=== PATIENT | male | born 1940 | race Caucasian/White ===

== ENCOUNTER 2019-08-27 21:02 | Inpatient (IN) | payer OTHER, SELFPAY ==
[~2019-08-27] VITALS: Ht 180.3 cm; Wt 111.0 kg
[2019-08-27 22:08] LABS: BASOPHILS # (AUTO) 0.1 X10'3 (0-0.2); EOSINOPHILS % (AUTO) 0 % (0-6); LYMPHOCYTES # (AUTO) 0.5 X10'3 (1.1-4.8); MEAN CORPUSCULAR HEMOGLOBIN 30.5 PG (27.0-31.0); RED CELL DISTRIBUTION WIDTH 13.9 % (11.5-14.5)
[2019-08-27 22:11] LABS: BASOPHILS % (AUTO) 0.9 % (0-1); HEMOGLOBIN 17.3 g/dl (14.0-17.9); LYMPHOCYTES % (AUTO) 4.5 % (21-51); MEAN CORPUSCULAR VOLUME 89.9 FL (78-98); MEAN PLATELET VOLUME 9.4 FL (7.4-10.4); MONOCYTES # (AUTO) 0.5 X10'3 (0-0.9); MONOCYTES % (AUTO) 3.9 % (2-12); NEUTROPHILS # (AUTO) 10.9 X10'3 (1.8-7.7); NEUTROPHILS % (AUTO) 90.7 % (42-75); PLATELET COUNT 190 X10'3 (140-440); RED BLOOD COUNT 5.68 X10'6 (4.70-6.10)
[2019-08-27 22:16] LABS: ALANINE AMINOTRANSFERASE 26 U/L (12-78); ALBUMIN 3.9 G/DL (3.4-5.0); ALBUMIN/GLOBULIN RATIO 1.1 (1.1-1.5); ALKALINE PHOSPHATASE 106 IU/L (46-116); ANION GAP 8 (8-16); ASPARTATE AMINO TRANSFERASE 22 U/L (10-37); BILIRUBIN,TOTAL 1.1 MG/DL (0.1-1.0); BLOOD UREA NITROGEN 10 MG/DL (7-18); BUN/CREATININE RATIO 9.3 (5.4-32.0); CALCIUM 10.5 MG/DL (8.5-10.1); CHLORIDE 105 MMOL/L (99-107); CREATININE 1.07 MG/DL (0.60-1.10); GLUCOSE 155 MG/DL (70-104); LIPASE 117 U/L (73-393); POTASSIUM 4.2 MMOL/L (3.5-5.1); SODIUM 139 MMOL/L (135-145); TOTAL CARBON DIOXIDE 25.9 MMOL/L (24-32); TOTAL PROTEIN 7.5 G/DL (6.4-8.2); eGFR 67 ML/MIN
[2019-08-27] MEDS ORDERED: normal saline 1000ML IV soln IVB ONE (22:50)
[2019-08-27] MEDS ORDERED: ondansetron/PF 4mg/2ml inj IV ONE (22:50)
[2019-08-27 23:01] LABS: CLARITY,URINE CLOUDY (Clear); GLUCOSE, URINE NEGATIVE (Neg); KETONES,URINE 40 mg/dl (Neg); LEUKOCYTE ESTERASE ,URINE NEGATIVE (Neg); NITRITES, URINE NEGATIVE (Neg); OCCULT BLOOD,URINE LARGE (Neg); PH,URINE 5.5 (4.8-8.0); PROTEIN,URINE 100 mg/dl (Neg)
[2019-08-27 23:04] LABS: COLOR,URINE DARK YELLOW (Yellow); UA COLLECTION TYPE NON-SPECIFIED
[2019-08-27] MEDS: morphine 4 MG/ML inj SYRINge IV PRN ×2 (23:12→23:59)
[2019-08-27 23:14] LABS: RBC,URINE TNTC /HPF (0-2)
[2019-08-27 23:15] LABS: BACTERIA,URINE FEW /HPF (Neg); MUCUS STRANDS FEW /LPF (Neg); SQUAMOUS EPITHELIAL CELL,UR FEW /LPF (FEW)
[2019-08-28] VITALS (17 sets, daily range): BP systolic 116–155; BP diastolic 60–87
[2019-08-28] MEDS ORDERED: metroNIDAZOLE-Flagyl 500mg/NS 100 ML IV STA (00:22)
[2019-08-28] MEDS ORDERED: piperacillin/tazo 3.375gm/50ml 50 ML IV ONE (00:25)
[2019-08-28] MEDS ORDERED: morphine 4 MG/ML inj SYRINge IV ONE (00:35)
[2019-08-28] MEDS ORDERED: potassium CL 10mEq/100ml bag 100 ML IV PRN ×2 (00:50)
[2019-08-28] MEDS ORDERED: ondansetron/PF 4mg/2ml inj IV PRN ×2 (00:50→01:00)
[2019-08-28] MEDS ORDERED: morphine 2 MG/ML inj. syringe IV PRN ×3 (00:50→01:00)
[2019-08-28] MEDS ORDERED: ringers solution, lacted 1,000 ML IV SCH (00:58)
[2019-08-28] MEDS ORDERED: hydrALAZINE 20mg/ml inj. IV PRN (01:00)
[2019-08-28] MEDS ORDERED: labetalol 20mg/4ml (5mg/ml) syringe IV PRN (01:00)
[2019-08-28] MEDS ORDERED: fentaNYL/PF 50MCG/1 ML 2ML syringe IV PRN ×2 (01:00)
[2019-08-28] MEDS ORDERED: morphine 4 MG/ML inj SYRINge IV PRN (01:00)
[2019-08-28] MEDS ORDERED: fentaNYL/PF 50MCG/1 ML 2ML syringe ONE (01:03)
[2019-08-28] MEDS ORDERED: midazolam 2 mg/2 ml injection ONE (01:03)
[2019-08-28] MEDS ORDERED: propofol inj 20 ML IV ONE (01:06)
[2019-08-28] MEDS ORDERED: neostigmine methylsulfate 1 MG/ML 10ml vial ONE (01:06)
[2019-08-28] MEDS ORDERED: glycopyrrolate 0.2mg/ml inj ONE (01:06)
[2019-08-28] MEDS ORDERED: dexamethasone sod phosphate 4mg/ml inj. ONE (01:06)
[2019-08-28] MEDS ORDERED: ondansetron/PF 4mg/2ml inj ONE (01:06)
[2019-08-28] MEDS ORDERED: rocuronium 10mg/ml inj IV ONE ×2 (01:06→01:27)
[2019-08-28] MEDS ORDERED: LIDOcaine 2% (20mg/ml) 5ml vial ONE (01:06)
[2019-08-28] MEDS ORDERED: gentamicin 40 MG/1 ML inj ONE (01:18)
[2019-08-28] MEDS ORDERED: BUPIVAcaine/PF 2.5 mg/ml (0.25%) 30ml vial ONE ×2 (01:18→02:40)
[2019-08-28] MEDS ORDERED: ceFAZolin 1000mg inj ONE (01:18)
[2019-08-28] MEDS ORDERED: clindamycin phosphate 150mg/ml inj. ONE (01:18)
[2019-08-28] MEDS ORDERED: sevoflurane 250ml liquid IH ONE (01:27)
[2019-08-28] MEDS ORDERED: sugammadex 200mg/2ml injection IV ONE (01:27)
[2019-08-28] MEDS ORDERED: labetalol 20mg/4ml (5mg/ml) syringe IV ONE (01:53)
[2019-08-28] MEDS ORDERED: HYDROcodone/acetaminophen 10/325mg tab PO ONE (02:55)
--- NOTE | 2019-08-28 03:00 | NUR ---
Received from OR via , accompanied by Anesthesiologist DR PEGUERO and report given by Anesthesiolgist. PT AWAKE, MOVING EXT X4 SKIN WARM AND PINK, ABD HAS 5 BA'S ON ABD, 4X4 AND FOAM TAPE ON UMBILICUS. MOREL TO GRAVITY, CLOUDY URINE, LR BOLUS RUNNING PER DR PEGUERO ORDERS, SCD'S PIV LEFT FA 20G, NO C/O PAIN.
--- NOTE | 2019-08-28 03:26 | NUR ---
Patient in room PCU 3020. I have received report from Sindy in recovery and had the opportunity to ask questions and awaiting arrival of patient to the PCU unit.
--- NOTE | 2019-08-28 03:30 | NUR ---
Report called to receiving nurse. Transferred via BED Belongings . Special Issues communicated to receiving nurse MI DELA CRUZ. PT IS AWAKE, ALERT, MOVING EXT X 4, SKIN WARM AND PINK, SCD'S ON, MOREL TO GRAVITY WITH CLOUDY URINE, IV BOLUS STILL INFUSING ON DELIVERY TO 3020, RN NOTIFIED, IV PATENT, DRESSING CD, NO C/O PAIN, PT MEETS DISCHARGE CRITERIA.
--- NOTE | 2019-08-28 03:50 | NUR ---
Patient arrived from the recovery room at this time. He is alert and oriented. His is with him at bedside. He is pleasant. He says at the highest level he would rate his pain at a 3 or 4 out of ten to the surgical incision site. Vitals are stable and will be obtaining post op vitals. He is on 3 liters oxygen NC. Hayward catheter in place. All safety precautions in place. Will continue to monitor.
--- NOTE | 2019-08-28 04:18 | NUR ---
Tried to complete med rec with patient but he states that he takes medication for his blood pressure and cholesterol but does not know the names of either. He says that he has the bottles in his RV at the [facility] so requested from if she goes back to the RV if she can get the names and dosages of the medications.
[2019-08-28] MEDS: normal saline 1000ml 1,000 ML IV SCH ×3 (04:21→23:06)
--- NOTE | 2019-08-28 06:18 | NUR ---
Problems reprioritized. Patient report given, questions answered & plan of care reviewed with Crystal DELA CRUZ and Peter DELA CRUZ.
--- NOTE | 2019-08-28 06:29 | NUR ---
Patient in room PCU 3020. I have received report from Leann DELA CRUZ and had the opportunity to ask questions and assume patient care. Patient awake in bed resting comfortably. Spouse bedside. Patient offers no complaints at this time.
--- NOTE | 2019-08-28 06:34 | NUR ---
Patient in room PCU 3020. I have received report from Leann DELA CRUZ and had the opportunity to ask questions and assume patient care.
[2019-08-28] MEDS: metroNIDAZOLE-Flagyl 500mg/NS 100 ML IV SCH ×3 (07:40→23:21)
[2019-08-28] MEDS: K and/or MAG REPLACEMENT MC SCH ×2 (08:00→21:37)
[2019-08-28] MEDS: piperacillin/tazo 3.375gm/50ml 50 ML IV SCH ×2 (09:14→16:43)
[2019-08-28] MEDS ORDERED: ATOR20TA PO (09:35)
[2019-08-28] MEDS ORDERED: TELM80TA9 PO (09:37)
[2019-08-28] MEDS ORDERED: ASPI-611 PO (09:38)
--- NOTE | 2019-08-28 18:29 | NUR ---
Patient in room PCU 3020. I have received report from Peter DELA CRUZ and had the opportunity to ask questions and assume patient care.
--- NOTE | 2019-08-28 18:29 | NUR ---
Problems reprioritized. Patient report given, questions answered & plan of care reviewed with Cuong DELA CRUZ.
--- NOTE | 2019-08-28 23:31 | NUR ---
Yesy Ralph per Dr. Dai's instructions
[2019-08-29] MEDS: piperacillin/tazo 3.375gm/50ml 50 ML IV SCH ×3 (00:26→16:00)
[2019-08-29] MEDS: metoclopramide 5 mg/ml inj IV SCH ×4 (02:06→20:00)
[2019-08-29 02:30] VITALS: BP 139/65
[2019-08-29 05:54] LABS: BASOPHILS % (AUTO) 0.2 % (0-1); EOSINOPHILS # (AUTO) 0.1 X10'3 (0-0.9); EOSINOPHILS % (AUTO) 0.5 % (0-6); HEMATOCRIT 41.9 % (42.0-52.0); HEMOGLOBIN 14.1 g/dl (14.0-17.9); LYMPHOCYTES # (AUTO) 0.9 X10'3 (1.1-4.8); LYMPHOCYTES % (AUTO) 9.4 % (21-51); MEAN CORPUSCULAR HEMOGLOBIN 30.7 PG (27.0-31.0); MEAN CORPUSCULAR HGB CONC 33.7 g/dL (33.0-36.5); MEAN CORPUSCULAR VOLUME 91.3 FL (78-98); MEAN PLATELET VOLUME 9.3 FL (7.4-10.4); MONOCYTES # (AUTO) 1.1 X10'3 (0-0.9); MONOCYTES % (AUTO) 10.7 % (2-12); NEUTROPHILS # (AUTO) 7.9 X10'3 (1.8-7.7); NEUTROPHILS % (AUTO) 79.2 % (42-75); PLATELET COUNT 152 X10'3 (140-440); RED BLOOD COUNT 4.59 X10'6 (4.70-6.10); RED CELL DISTRIBUTION WIDTH 14.4 % (11.5-14.5); WHITE BLOOD COUNT 9.9 X10'3 (4.5-11.0)
[2019-08-29 06:00] VITALS: BP 135/75
[2019-08-29 06:07] LABS: ALANINE AMINOTRANSFERASE 16 U/L (12-78); ALBUMIN 3.1 G/DL (3.4-5.0); ALBUMIN/GLOBULIN RATIO 1.1 (1.1-1.5); ALKALINE PHOSPHATASE 63 IU/L (46-116); ANION GAP 8 (8-16); ASPARTATE AMINO TRANSFERASE 17 U/L (10-37); BILIRUBIN,TOTAL 0.7 MG/DL (0.1-1.0); BLOOD UREA NITROGEN 9 MG/DL (7-18); BUN/CREATININE RATIO 8.2 (5.4-32.0); CALCIUM 9.5 MG/DL (8.5-10.1); CHLORIDE 108 MMOL/L (99-107); GLUCOSE 107 MG/DL (70-104); SODIUM 143 MMOL/L (135-145); TOTAL CARBON DIOXIDE 27.3 MMOL/L (24-32); eGFR 65 ML/MIN
--- NOTE | 2019-08-29 06:12 | NUR ---
Problems reprioritized. Patient report given, questions answered & plan of care reviewed with Stephanie DELA CRUZ.
--- NOTE | 2019-08-29 06:18 | NUR ---
Patient in room PCU 3020. I have received report from LANIE Cortez and had the opportunity to ask questions and assume patient care. Patient currently sleeping in bed, visible chest rise and fall, no acute distress, bed locked and low, call light in reach, will continue to monitor.
[2019-08-29] MEDS: metroNIDAZOLE-Flagyl 500mg/NS 100 ML IV SCH ×3 (07:49→23:03)
[2019-08-29] MEDS: K and/or MAG REPLACEMENT MC SCH ×2 (08:00→19:54)
[2019-08-29 11:00] VITALS: BP 138/62
[2019-08-29] MEDS ORDERED: bisacodyl 10mg suppository rectal RC STA (12:41)
[2019-08-29] MEDS ORDERED: magnesium citrate 296ml oral solution PO PRN (12:45)
[2019-08-29] MEDS ORDERED: magnesium hydroxide 30ml (MOM) UD suspension PO ONE (12:45)
--- NOTE | 2019-08-29 14:33 | NUR ---
Problems reprioritized. Patient report given, questions answered & plan of care reviewed with LANIE Gonsales.
[2019-08-29 15:00] VITALS: BP 141/70
[2019-08-29] MEDS: normal saline 1000ml 1,000 ML IV SCH (16:15)
--- NOTE | 2019-08-29 17:14 | NUR ---
Administered Zosyn, bag wouldn't scan.
--- NOTE | 2019-08-29 18:22 | NUR ---
Problems reprioritized. Patient report given, questions answered & plan of care reviewed with LANIE Cortez. Patient stable at transfer of care.
[2019-08-29 18:30] VITALS: BP 146/69
--- NOTE | 2019-08-29 18:40 | NUR ---
Patient in room PCU 3020. I have received report from CRISTIAN DELA CRUZ and had the opportunity to ask questions and assume patient care.
[2019-08-29] MEDS ORDERED: atorvastatin 20mg tablet PO SCH (21:00)
[2019-08-29 22:30] VITALS: BP 151/88
[2019-08-30] MEDS: piperacillin/tazo 3.375gm/50ml 50 ML IV SCH ×2 (00:31→09:49)
[2019-08-30] MEDS: metoclopramide 5 mg/ml inj IV SCH ×2 (02:00→07:16)
[2019-08-30 02:30] VITALS: BP 148/85
--- NOTE | 2019-08-30 06:01 | NUR ---
Problems reprioritized. Patient report given, questions answered & plan of care reviewed with Ilda DELA CRUZ.
--- NOTE | 2019-08-30 06:16 | NUR ---
Patient in room PCU 3020. I have received report from LANIE Cortez and had the opportunity to ask questions and assume patient care. Patient awake in bed and in no acute distress.
[2019-08-30 06:31] LABS: BASOPHILS % (AUTO) 0.3 % (0-1); EOSINOPHILS % (AUTO) 0.3 % (0-6); HEMATOCRIT 45.2 % (42.0-52.0); HEMOGLOBIN 15.4 g/dl (14.0-17.9); LYMPHOCYTES # (AUTO) 0.6 X10'3 (1.1-4.8); MEAN CORPUSCULAR HGB CONC 34.1 g/dL (33.0-36.5); MEAN CORPUSCULAR VOLUME 90.7 FL (78-98); MEAN PLATELET VOLUME 9.2 FL (7.4-10.4); MONOCYTES # (AUTO) 0.9 X10'3 (0-0.9); MONOCYTES % (AUTO) 9.2 % (2-12); NEUTROPHILS # (AUTO) 7.9 X10'3 (1.8-7.7); NEUTROPHILS % (AUTO) 84.2 % (42-75); PLATELET COUNT 151 X10'3 (140-440); RED BLOOD COUNT 4.98 X10'6 (4.70-6.10); RED CELL DISTRIBUTION WIDTH 13.9 % (11.5-14.5); WHITE BLOOD COUNT 9.4 X10'3 (4.5-11.0)
[2019-08-30 06:55] LABS: ALANINE AMINOTRANSFERASE 18 U/L (12-78); ALBUMIN 3.1 G/DL (3.4-5.0); ALBUMIN/GLOBULIN RATIO 1.1 (1.1-1.5); ALKALINE PHOSPHATASE 68 IU/L (46-116); ANION GAP 4 (8-16); ASPARTATE AMINO TRANSFERASE 20 U/L (10-37); BILIRUBIN,TOTAL 0.8 MG/DL (0.1-1.0); BLOOD UREA NITROGEN 10 MG/DL (7-18); CALCIUM 9.1 MG/DL (8.5-10.1); CHLORIDE 107 MMOL/L (99-107); CREATININE 1.11 MG/DL (0.60-1.10); GLUCOSE 126 MG/DL (70-104); POTASSIUM 3.8 MMOL/L (3.5-5.1); SODIUM 143 MMOL/L (135-145); TOTAL CARBON DIOXIDE 31.6 MMOL/L (24-32); eGFR 64 ML/MIN
[2019-08-30 07:00] VITALS: BP 145/82
[2019-08-30] MEDS: metroNIDAZOLE-Flagyl 500mg/NS 100 ML IV SCH (07:16)
[2019-08-30] MEDS: K and/or MAG REPLACEMENT MC SCH (07:16)
[2019-08-30 11:00] VITALS: BP 140/84
--- NOTE | 2019-08-30 12:31 | NUR ---
PAGER ID: [phone] MESSAGE: [phone] [place] SAID OK TO D/C. HE NEEDS TO F/U WITH HIS DOCTOR IN [place] IN ONE WEEK. KATHERINE HUSSEIN
--- NOTE | 2019-08-30 12:35 | NUR ---
Paged Dr. Witt regarding filling out patient's fit to travel form. PAGER ID: [phone] MESSAGE: [phone]. Franco العلي. Fit to travel form needs to be filled out and it is in the patient's chart. Thank you. Ilda DELA CRUZ x [phone]
[2019-08-30] MEDS ORDERED: ACET-1008 PO (12:46)
[2019-08-30] MEDS ORDERED: METR-159 PO (12:46)
--- NOTE | 2019-08-30 14:15 | NUR ---
Patient stable for discharge per MD orders. All discharge instructions reviewed and questions answered appropriately. Form fit to travel faxed to the traveling insurance. Belongings collected and sent with patient. Patient did not want his new prescription to be called in because he lives in [place], and will see PCP when he arrives home. PIV discontinued and cannula intact. Patient wheeled down to lobby and left via private vehicle.
[2019-08-31] MEDS ORDERED: methylnaltrexone br 12mg/0.6ml inj***SubQ only SQ SCH (08:00)
== END 2019-08-30 14:15 | disposition home or self-care (01) | DRG 354 ==
LOC: ER 21:02 → ED HOLD 08-28 00:49 → UNDOADMIN 08-28 01:31 → ED HOLD 08-28 02:53 → PCU 3S 08-28 02:53
PROVIDERS: ADMIT Internal Medicine; ATTEND Family Medicine
PROC: 0WUF4JZ Supplement Abdominal Wall with Synthetic Substitute, Percutaneous Endoscopic Approach (ICD-10-PCS; principal; 2019-08-28 01:27)
DX: K42.0 Umbilical hernia with obstruction, without gangrene (principal); K55.9 Vascular disorder of intestine, unspecified; N28.1 Cyst of kidney, acquired; R31.9 Hematuria, unspecified; I10 Essential (primary) hypertension; E78.00 Pure hypercholesterolemia, unspecified; E78.5 Hyperlipidemia, unspecified; N32.9 Bladder disorder, unspecified; Z96.652 Presence of left artificial knee joint; Z86.010 Personal history of colon polyps
CPT/HCPCS: Z7506; Z7508; 36415; 71045; 74176; 80053; 81001; 83605; 83690; 85025; 87081; 87088; 93005; A4215; A4618; A7000; C1758; C1781; C9399; G0378; J0690; J1100; J1580; J2001; J2250; J2270; J2405; J2543; J2704; J2710; J2765; J3010; J3490; J7030; J7120